=== PATIENT | female | born 1940 | race Caucasian/White ===

== ENCOUNTER 2023-12-28 10:14 | Emergency (ER) | payer OTHER, SELFPAY ==
[2023-12-28 10:33] VITALS: BP 166/78
[2023-12-28 11:51] VITALS: BMI 28.4
--- NOTE | 2023-12-28 12:00 | ED.GENMED ---
History of Present Illness
General
Chief Complaint: Headache
Time Seen by Provider: 12/28/23 11:30
Travel History
Have you had any contact with someone who has COVID-19?: No
Do you have any symptoms of coronavirus? Fever > 100 degrees, chills, cough, shortness of breath, sore throat, loss of taste or smell, muscle aches, or headache?: No
History of Present Illness
History of Present Illness:
83-year-old female with history of colorectal cancer status post colostomy, breast cancer status post mastectomy, and hypothyroidism presents to the emergency department for evaluation of gradually worsening right occipital/mastoid area headache
ongoing for the past 4 to 5 days. Pain was not abrupt in onset, has not improved despite [id number] Tylenol use. Denies any vision changes, photophobia, nausea, vomiting, or extremity paresthesias. No change in pain with head or neck
movement.
Review of Systems
Review of Systems
Allergies reviewed?: Yes
All Other Systems: ROS reviewed and negative except as documented in HPI and ROS
Phy Exam
Physical Exam
Physical Exam:
GEN: Well appearing, NAD, WDWN
HEENT: Oral mucosa moist, no scleral icterus, no nasal congestion. No reproducible tenderness to the right temporal or occipital space, no erythema or skin changes
Cardiac: Regular rate
Lung: No respiratory distress, no tachypnea
MSK: No gross deformity or injuries
Skin: Good color, no pallor or jaundice, no rashes
Neuro: AO x3; CN II-XII grossly intact. BUE strength 5/5 in all kent, sensation intact and symmetric. BLE strength 5/5 in all kent, sensation intact and symmetric
Psych: Calm, cooperative
Course
Orders/Labs/Results
Orders:
Orders
12/28/23 11:59
IV Insert/Care/Rem.- Treatment PRN
Gabapentin [Neurontin] 100 mg PO NOW STA
Metoclopramide [Reglan] 10 mg IV NOW STA
Morphine Sulfate 4 mg IV NOW STA
12/28/23 12:24
Gabapentin [Neurontin] 300 mg PO NOW STA
12/28/23 13:57
CT Head W/o Iv Contrast Urgent
Comment:
Reason For Exam: new R occipital headache
12/28/23 15:11
Dexamethasone Sod Phosphate [Decadron] 6 mg IV NOW STA
Morphine Sulfate 2 mg IV NOW STA
Vital Signs
Initial and Last Documented VS:
Initial Vital Signs
Temp Pulse Resp BP Pulse Ox
98.9 F 75 18 166/78 96
12/28/23 10:33 12/28/23 10:33 12/28/23 10:33 12/28/23 10:33 12/28/23 10:33
Last Documented Vital Signs
Temp Pulse Resp BP Pulse Ox
98.9 F 69 20 158/69 99
12/28/23 10:33 12/28/23 17:04 12/28/23 17:04 12/28/23 17:04 12/28/23 17:04
MDM/Problems Addressed
MDM/Problems Addressed:
Patient is neurologically intact thus neuroimaging was not immediately ordered. Initial antimigraine medications were ineffective, I subsequently performed a right lesser occipital nerve block with 2 cc of 1% lidocaine with no significant
improvement. Patient was quite insistent that we obtain imaging to rule out intracranial process which I ultimately obliged, CT of the head was unremarkable. Clinical pattern is suspicious for occipital neuralgia, given that she is intolerant to
NSAIDs we will try course of steroids. She is already on nerve pain medications
*Critical Care Note
Total Time (30-74mins, 75-104mins- exclusive of procedures): Not Applicable
ED Attending Note
-
Portions of this chart may have been created with voice recognition software.� Occasional wrong word or��sound alike� substitutions may have occurred due to the inherent limitations of voice recognition software.
Discharge Plan
Departure
Patient Disposition: Home (Routine Discharge)
Date of Disposition: 12/28/23
Time of Disposition: 16:12
Patient with high blood pressure during this ER visit?: No
Discharge Problem:
Occipital neuralgia of right side
Instructions: Trigeminal neuralgia
Prescriptions:
New
methylprednisolone [Medrol (Sudheer)] 4 mg tablets,dose pack
See Rx Instructions .ROUTE .COMPLEX Qty: 21 0RF
Rx Instructions:
orally per package directions
No Action
anastrozole 1 MG tablet
1 mg PO DAILY
levothyroxine 100 MCG tablet
100 mcg PO DAILY
cholecalciferol (vitamin D3) 1,000 UNITS tablet
1,000 units PO QPM
multivitamin with folic acid [Tab-A-Kristian] 1 TABLET tablet
0.5 tab PO DAILY
Ca carb-D3-mag [id number] [Caltrate-D3 Plus Minerals] 1 EACH tablet
0.5 tab PO BID
acetaminophen 500 MG tablet
1,000 mg PO QID PRN (Reason: pain)
mupirocin 1 APPLIC ointment
1 applic intranasal BID Qty: 1 0RF
Patient Comments:
last dose pm 08/29, bids since monday 08/27
Rx Instructions:
Has from prior R TKA in 10/2019.
calcium polycarbophil [Fiber-Tabs] 625 MG tablet
625 mg PO BID 0RF
docusate sodium 100 MG capsule
100 mg PO BID 0RF
hydromorphone 2 MG tablet
2 mg PO Q4HPRN PRN (Reason: moderate-severe pain) Qty: 30 0RF
Rx Instructions:
1 tab moderate pain or 2 if pain severe
dx tka
ongoing therapy
vitamin A-vitamin C-vit E-min 1 TAB tablet
0.5 tab PO QPM Qty: 0 0RF
Rx Instructions:
resume 7 days post-op
red yeast rice 600 MG tablet
600 mg PO DAILY Qty: 0 0RF
Rx Instructions:
resume 7 days post-op
Glucosamine & Chondroitin Cap
1 cap PO DAILY Qty: 0 0RF
Rx Instructions:
resume 7 days post-op
gabapentin 100 MG capsule
200 mg PO BID Qty: 120 1RF
aspirin [Aspir-Low] 81 MG tablet,delayed release (DR/EC)
81 mg PO BID Qty: 1 0RF
Rx Instructions:
w food
Referrals:
Beatriz Murdock MD [Family Provider] -
Interventions
Interventions:
*Risk Screen - Suicide Last Done: 12/28/23 12:13
*General Assessment Last Done: 12/28/23 12:12
*Neglect/Abuse Screening Last Done: 12/28/23 12:13
*ED COVID-19 Vaccine History Last Done: 12/28/23 10:33
ED- Neurological Assessment Last Done: 12/28/23 12:14
Discharge Date and Time
Print Language: BURUNDIAN
[2023-12-28] MEDS: REGLAN 10 MG IV (12:12)
[2023-12-28] MEDS: MORPHINE SULFATE 4 MG IV (12:21)
[2023-12-28] MEDS: NEURONTIN 300 MG PO (12:27)
[2023-12-28 15:06] VITALS: BP 170/75
[2023-12-28] MEDS: DECADRON 6 MG IV (16:01)
[2023-12-28] MEDS: MORPHINE SULFATE 2 MG IV (16:01)
[2023-12-28 16:20] VITALS: BP 158/69
[2023-12-28 17:04] VITALS: BP 158/69
== END 2023-12-28 16:25 | disposition home or self-care (01) ==
LOC: EMR 10:14
PROVIDERS: EMERGENCY PHYSICIAN Emergency Medicine; FAMILY PHYSICIAN Internal Medicine Geriatric Medicine
DX: M54.81 Occipital neuralgia (principal); E03.9 Hypothyroidism, unspecified; Z85.048 Personal history of other malignant neoplasm of rectum, rectosigmoid junction, and anus; Z85.3 Personal history of malignant neoplasm of breast; Z93.3 Colostomy status
CPT/HCPCS: 99284; 96374; 96375; 96376; 70450

== ENCOUNTER 2023-12-31 23:52 | Inpatient (IN) | payer OTHER, SELFPAY ==
[2023-12-31] VITALS (8 sets, daily range): BP systolic 93–174; BP diastolic 49–82; BMI 27.8
[2023-12-31 17:57] LABS: % Basophils 0.3 % (0-2); % Eosinophils 0.8 % (0-6); % Immature Granulocytes 0.7 % (0-0.5); % Lymphocytes 1.8 % (20.5-51.1); % Monocytes 4.3 % (1.7-9.3); % Neutrophils 92.1 % (42.2-75.2); Absolute Basophils 0.1 10^3/uL (0-0.2); Absolute Eosinophils 0.2 10^3/uL (0-0.7); Absolute Immature Granulocytes 0.2 10^3/uL (0-0.05); Absolute Lymphocytes 0.5 10^3/uL (1.2-3.4); Absolute Monocytes 1.2 10^3/uL (0.1-0.6); Absolute Neutrophils 25.5 10^3/uL (1.4-6.5); Hematocrit 39.8 % (37.0-47.0); Hemoglobin 13.8 g/dL (12.0-16.0); Mean Corp Hgb Conc. 34.7 g/dL (33.0-37.0); Mean Corpuscular Hgb 30.6 pg (27.0-31.0); Mean Corpuscular Volume 88.2 fL (81.0-99.0); Mean Platelet Volume 9.8 fL (7.4-10.4); Nucleated Red Blood Cells % 0 %; Platelet Count 219 10^3/uL (130-400); Red Blood Cell Count 4.51 10^6/uL (4.20-5.40); White Blood Cell Count 27.6 10^3/uL (4.8-10.8)
[2023-12-31 18:18] LABS: ALT (SGPT) 41 U/L (0-35); AST (SGOT) 32 U/L (14-36); Albumin 3.6 g/dl (3.5-5.0); Alkaline Phosphatase 126 U/L (38-126); Calcium 9.2 mg/dl (8.4-10.2); Carbon Dioxide 27 mmol/L (22-30); Chloride 93 mmol/L (98-107); Glucose 174 mg/dl (70-99); Potassium 4.2 mmol/L (3.5-5.1); Sodium 130 mmol/L (135-145); Total Protein 6.4 g/dl (6.3-8.2); eGFR > 60.00
[2023-12-31 18:52] LABS: Blood Urea Nitrogen 27 mg/dl (7-17)
--- NOTE | 2023-12-31 21:14 | ED.GENMED ---
History of Present Illness
General
Chief Complaint: Headache
Source: patient and family
Time Seen by Provider: 12/31/23 20:51
Travel History
Have you had any contact with someone who has COVID-19?: No
Do you have any symptoms of coronavirus? Fever > 100 degrees, chills, cough, shortness of breath, sore throat, loss of taste or smell, muscle aches, or headache?: No
History of Present Illness
History of Present Illness:
83-year-old female presents to the emergency room complaining of pain located in her posterior right head, temporal region radiating to her jaw. Patient's also noted to have some drooping of the right eye as well as erythema around the right eye.
Patient began having a this pain approximately 9 days ago. It began as a more mild pain and has got progressively worse. No improvement with Tylenol. Patient was seen here in the emergency room on December 27. At that time she had imaging in the
form of CT scan which showed no acute abnormalities. Patient was treated with gabapentin and steroids for presumed occipital neuralgia. The eye symptoms were not prominent at that time.
Phy Exam
Physical Exam
Physical Exam:
General: Awake, Alert, Oriented X3. Patient peers uncomfortable
Vitals: Febrile
Head: Atraumatic
Eyes: Pupils equal, EOMI, mild scleral injection, anterior chamber appears normal. There is erythema surrounding the right eye and evaluate the eyelid. Mild tenderness to palpation. No pain with extraocular movement
Throat: Airway intact, no exudates
Neck: Trachea midline, no nuchal rigidity
Lungs: Clear and equal b/l
Heart: Regular rate, 2/6 murmurs
Abd: Soft, Nontender, No pulsatile mass
Neuro: Cranial nerves intact, muscle strength equal bilaterally, cerebellar exam normal
Skin: Warm, dry, no rash
Extremities: pulses equal b/l, no edema
Course
Orders/Labs/Results
Orders:
Orders
12/31/23 17:40
Electrocardiogram (*1) Urgent
Reason for Study: Hypertension, Benign
12/31/23 17:48
Complete Blood Count/With Diff Urgent
Comprehensive Metabolic Panel Urgent
12/31/23 21:06
Influenza A+B Rapid Molecular Urgent
ART Source: Nasal Swab
Specimen Description:
12/31/23 21:07
COVID-19 Antigen Urgent
Source: Nasal Swab
12/31/23 21:12
HYDROmorphone [Dilaudid] 0.5 mg IV NOW STA
12/31/23 21:15
C-Reactive Protein Urgent
Lactic Acid Q4H
Comment: ON ICE, CANCEL 2ND ORDER IF FIRST LACTIC ACID LEVEL <2
Sed Rate [Erythrocyte Sed Rate] Urgent
Blood Culture Q30M
ART Source: Blood/Venous
Specimen Description:
Comment: FROM 2 SEPARATE SITES
12/31/23 21:19
Acetaminophen [Tylenol] 650 mg .ROUTE .STK-MED ONE
12/31/23 21:23
Acetaminophen [Tylenol] 650 mg PO NOW STA
12/31/23 21:27
0.9% Sodium Chloride 1000 ml [Nss] 1,000 ml IV BOLUS
12/31/23 21:42
Fluorescein Sodium [Ful-Nona] 1 mg .ROUTE .STK-MED ONE
Tetracaine HCl [Tetracaine 0.5% Ophthalmic Solution] 1 drop .ROUTE .STK-MED ONE
12/31/23 22:35
0.9% Sodium Chloride 1000 ml [Nss] 1,000 ml IV BOLUS
12/31/23 22:37
Piperacillin/Tazo 4.5 Gram [Zosyn] 4.5 gram in 100 ml IV NOW
12/31/23 22:50
Urinalysis Reflex To Culture Urgent
Date Specimen was Collected: 12/31/23
Time Specimen was Collected: 22:48
Comment: straight cath
12/31/23 23:04
Vancomycin [Vancocin] 1,750 mg 0.9% Sodium Chloride 500 ml [Nss] 500 ml IV NOW
12/31/23 23:17
Blood Culture Q30M
ART Source: Blood/Venous
Specimen Description:
Comment: FROM 2 SEPARATE SITES
12/31/23 23:28
CT Orbits With Iv Contrast Urgent
Comment:
Reason For Exam: right eye erythema, ptosis, + fevers
01/01/24 01:15
Lactic Acid Q4H
Comment: ON ICE, CANCEL 2ND ORDER IF FIRST LACTIC ACID LEVEL <2
Abnormal Lab Results
12/31/23 12/31/23
17:48 21:15
WBC 27.6 H 10^3/uL
(4.8-10.8)
Abs Immat Gran (auto) 0.2 H 10^3/uL
(0-0.05)
Absolute Neuts (auto) 25.5 H 10^3/uL
(1.4-6.5)
Absolute Lymphs (auto) 0.5 L 10^3/uL
(1.2-3.4)
Absolute Monos (auto) 1.2 H 10^3/uL
(0.1-0.6)
Immature Gran % 0.7 H %
(0-0.5)
Neutrophils % 92.1 H %
(42.2-75.2)
Lymphocytes % 1.8 L %
(20.5-51.1)
ESR 50 H mm/hour
(0-20)
Sodium 130 L mmol/L
(135-145)
Chloride 93 L mmol/L
(98-107)
BUN 27 H mg/dl
(7-17)
Glucose 174 H mg/dl
(70-99)
ALT 41 H U/L
(0-35)
C-Reactive Protein > 270.00 H mg/L
(0.0-10.00)
12/31/23 17:48
12/31/23 17:48
Vital Signs
Initial and Last Documented VS:
Initial Vital Signs
Temp Pulse Resp BP Pulse Ox
98.7 F 94 18 174/82 93
12/31/23 17:36 12/31/23 17:36 12/31/23 17:36 12/31/23 17:36 12/31/23 17:36
Last Documented Vital Signs
Temp Pulse Resp BP Pulse Ox
99.0 F 80 20 97/53 95
12/31/23 23:15 12/31/23 23:00 12/31/23 23:00 12/31/23 23:00 12/31/23 23:00
MDM/Problems Addressed
Differential Diagnosis Includes:
periorbital cellulitis, orbital cellulitis, giant cell arteritis, zoster with ophthalmic involvement
MDM/Problems Addressed:
Patient presents with fever this persistent headache. She now has ptosis and some mild periorbital erythema. Concern for infectious process. There is no fluorescein uptake on ophthalmologic exam with fluorescein. Also concern for giant cell
arteritis. Particularly given the presentation of pain radiating to her jaw, scalp tenderness and now eye involvement. Discussed this possibly rheumatology. Recommended 6 mg of Decadron. Also cover with broad-spectrum antibiotics for infectious
cause.
*Pulse Oximetry
Patient hypoxic: no
*International Logistics Manager Interpretation
Rate: normal
Interpretation: normal
Rhythm: sinus
*Critical Care Note
Total Time (30-74mins, 75-104mins- exclusive of procedures): Not Applicable
Data Reviewed
Review of Other/Old Records Reveals: Radiology Studies (from 12/27)
ED Attending Note
-
Portions of this chart may have been created with voice recognition software.� Occasional wrong word or��sound alike� substitutions may have occurred due to the inherent limitations of voice recognition software.
Discharge Plan
Departure
Patient Disposition: Admit
Date of Disposition: 12/31/23
Time of Disposition: 22:38
Presentation/result/management discussed w/ accepting MD/DO: Hospitalist
Condition: Fair
Discharge Problem:
Fever, Ptosis, Headache
Prescriptions:
No Action
levothyroxine 100 MCG tablet
100 mcg PO DAILY
cholecalciferol (vitamin D3) 1,000 UNITS tablet
1,000 units PO QPM
multivitamin with folic acid [Tab-A-Kristian] 1 TABLET tablet
0.5 tab PO DAILY
Caltrate-D3 Plus Minerals 1 EACH tablet
1 tab PO DAILY
red yeast rice 600 MG tablet
600 mg PO DAILY Qty: 0 0RF
gabapentin 300 mg capsule
300 mg PO BID
Glucosamine Chondroitin 550-30-1 mg Capsule
1 cap PO DAILY
methylprednisolone [Medrol (Sudheer)] 4 mg tablets,dose pack
4 mg PO .TAPER
Patient Comments:
12/31/2023: Pt is on day 3 of the taper directions, pt took am and lunch doses (total 8mg today)
Referrals:
Beatriz Murdock MD [Family Provider] -
Interventions
Interventions:
*Risk Screen - Suicide Last Done: 12/31/23 17:36
*General Assessment Last Done: 12/31/23 17:36
*Neglect/Abuse Screening Last Done: 12/31/23 17:36
ED- Neurological Assessment Last Done: 12/31/23 23:10
Discharge Date and Time
Print Language: SWEDISH
[2023-12-31] MEDS: TYLENOL 650 MG PO (21:24)
[2023-12-31] MEDS: NSS 1000 IV ×2 (21:28→23:27)
[2023-12-31] MEDS: DILAUDID 0.5 MG IV (21:29)
[2023-12-31 21:35] LABS: Erythrocyte Sed Rate 50 mm/hour (0-20)
[2023-12-31 21:37] LABS: Lactic Acid 1.6 mmol/L (0.7-2.0)
[2023-12-31 21:42] LABS: COVID-19 Antigen Negative (Negative)
[2023-12-31 21:56] LABS: C-Reactive Protein > 270.00 mg/L (0.0-10.00)
--- NOTE | 2023-12-31 22:49 | EDRN ---
straight cath performed to obtain urine specimen. straight cath urine output-800mL. pt states she had no urge to urinate.
--- NOTE | 2023-12-31 23:06 | HPS.HSE ---
Family Physician
-
Family Physician: Beatriz Murdock
Chief Complaint
-
headache and right eye drooping
History of Present Illness
Ms. Kari Guzman is a 83 yo woman with hx rectal colon CA s/p partial colectomy, CKD 3, peripheral neuropathy, ER visit 12/27 for right occipital/mastoid area headache with neg CT discharged on steroids represents to the ER with persistent headache and
right eye drooping.
Patient's headache started about a week and a half ago. At first she said it was minor but then progressed. Mainly along right posterior side. She also complained of right jaw pain. Patient states she didn't notice anything abnormal with her eye
until son pointed it out today. Her right eye has eye lid erythema and ptosis, nearly closed shut. Patient denies eye pain or vision changes. She can move her eye without any pain.
She did not notice that she was having fevers at home.
No chest pain or shortness of breath. + decreased appetite today and vomiting. No diarrhea. No rash. No LE swelling.
Patient has been taking her Medrol pack prescribed last ER visit but states the pain has gotten worse.
Medical History
Past Medical History
Past Medical History: Reports Other ( hx rectal colon CA s/p partial colectomy, CKD 3, peripheral neuropathy, hypothyroidism)
Past Surgical History: Reports None
Social History
Tobacco: Non-smoker
Alcohol: None
Family History
Family History: Not pertinent
Allergies / Home Medications
Allergies reflects when Allergies were last updated in [facility].
Home Medications with original date entered in [facility]
Allergy/Medication List:
Allergies
Allergy/AdvReac Type Severity Reaction Status Date / Time
Cephalosporins Allergy Shortness Verified 12/31/23 17:35
of Breath
NSAIDS (Non-Steroidal Allergy RECTAL Verified 12/31/23 17:35
Anti-Inflamma BLEEDING
Home Medications
calcium carb 300 mg-D3 20 mcg-mag ox 25 mg-copywriting intern 0.5 up-dpnz-diny tablet (Caltrate-D3 Plus Minerals) 1 tab PO DAILY 10/20/19
cholecalciferol (vitamin D3) 25 mcg (1,000 unit) tablet 1,000 units PO QPM 10/20/19
levothyroxine 100 mcg tablet 100 mcg PO DAILY 10/20/19
multivitamin with folic acid 400 mcg tablet (Tab-A-Kristian) 0.5 tab PO DAILY 10/20/19
red yeast rice 600 mg tablet 600 mg PO DAILY ##0 08/31/20
gabapentin 300 mg capsule 300 mg PO BID 12/31/23
glucosamine sulf dipot chlr,msm,chond 550 mg-C 30 mg-maría 1 mg capsule (Glucosamine Chondroitin) 1 cap PO DAILY 12/31/23
methylprednisolone 4 mg tablets in a dose pack (Medrol (Sudheer)) 4 mg PO .TAPER 12/31/23
Review of Systems
-
History Source: Patient
A 12 point ROS was completed and negative except as noted: Yes
Physical Exam
Vital Signs
Vital Signs
Temp Pulse Resp BP Pulse Ox
100.3 F 93 20 101/49 94
12/31/23 22:30 12/31/23 22:45 12/31/23 22:45 12/31/23 22:30 12/31/23 22:45
Physical Exam
General: No Apparent Distress
HEENT: Other (pupils small, equal and reactive. right eye ptosis and eyelid erythema)
Respiratory: Clear; No Wheezes
Cardiac: S1/S2 and Regular Rhythm
GI: Soft and Non Tender
Musculoskeletal: No Edema
Skin: Warm and Dry; No Rash
Neuro: AO x 3
Psych: Calm
Laboratory Results
-
12/31/23 17:48
12/31/23 17:48
Laboratory Results
Lactic Acid 1.6 mmol/L (0.7-2.0) 12/31/23 21:15
Total Bilirubin 1.0 mg/dl (0.2-1.3) 12/31/23 17:48
AST 32 U/L (14-36) 12/31/23 17:48
ALT 41 U/L (0-35) H 12/31/23 17:48
Alkaline Phosphatase 126 U/L (38-126) 12/31/23 17:48
Data Reviewed
-
Diagnostic Radiology: Report Reviewed by me
Lab Data: Labs Reviewed by me
Impression/Plan
-
Ms. Kari Guzman is a 83 yo woman with hx rectal colon CA s/p partial colectomy, CKD 3, peripheral neuropathy, ER visit 12/27 for right occipital/mastoid area headache with neg CT discharged on steroids represents to the ER with persistent headache and
right eye drooping.
Triage VS: T 98.7 up to 102.8, P 94, RR 18, BP 174/82, SpO2 93%
LABS: WBC 27.6, Hg 13.8, PLT 219, ESR 50, Na 130, K+ 4.2, Cl 93, BUN 27, Cr 0.9, Glucose 174, Lactate 1.6, CRP > 270
covid negative
flu negative
MAR: IVF, dilaudid, Vanc/Zosyn
Right Eye Erythema
Right Eye Ptosis
Occipital Headache
Fevers
Presentation unclear. Started with headache now with fevers, right eye erythema and ptosis. Concern for preseptal versus orbital cellulitis versus cavernous sinus thrombosis? Concern also raised for GCA given jaw pain, fever and headache
-obtaining CT orbits with contrast now as will also see cavernous sinus.
-will continue broad spectrum abx vanc/zosyn
-ER discussed case with rheum and concern raised for GCA but with location of headache, right eye erythema and ptosis this diagnosis seems more unlikely. Will await above results before starting higher dose steroids (initial recs were for decadron
6mg daily)
-ID Consult
-may need optho consult versus rheum/vasc surgery or neuro consult depending on above
DVT PPx SCD
FULL CODE
[2023-12-31 23:17] LABS: Urine Albumin 2+ (Neg - Trace); Urine Bilirubin Negative (Negative); Urine Character Clear (Clear); Urine Color Yellow; Urine Glucose Negative (Negative); Urine Ketone 1+ (Negative); Urine Leukocyte Negative (Negative); Urine Nitrite Negative (Negative); Urine Occult Blood Negative (Negative); Urine Urobilinogen Negative (Neg - 1+)
[2023-12-31] MEDS: ZOSYN 100 IV (23:27)
[2024-01-01] VITALS (8 sets, daily range): BP systolic 96–141; BP diastolic 45–57; BMI 29.2; BMI 29.7
[2024-01-01] MEDS: VANCOCIN 535 MG IV (00:31)
[2024-01-01 00:35] LABS: Urine Amorphous Seen; Urine Red Blood Cell 0-2 /HPF (0-2); Urine White Cell 0-2 /HPF (0-5)
[2024-01-01 00:36] LABS: Urine Bacteria Many (Negative)
--- NOTE | 2024-01-01 01:00 | W.PN.UPDATE ---
Update Note
Progress Note Update
CT orbits shows mild right periorbital preseptal soft tissue swelling, no post septal emphysema or abscess. complete opacification left sphenoid sinus, correlate clinically for sinusitis.
*no evidence of orbital cellulitis
Given LAW, fevers, jaw pain and scalp tenderness - will start Decadron per rheumatology recs and consult vascular surgery for biopsy.
will continue abx for preseptal cellulitis.
[2024-01-01] MEDS: DECADRON 6 MG PO (01:14)
--- NOTE | 2024-01-01 02:00 | PTCARENOTE ---
@0140; Received pt from ED ,via stretcher,tele and nasal canula 2liters.Pt assisted to standing scale and to bed.Gait unsteady and needed assist of 2 to bed. Pt's right eye lid is edematous and covers over right eye.
--- NOTE | 2024-01-01 02:45 | PTCARENOTE ---
@0240 ;Dr Escamilla into see pt and CT of head ordered.
--- NOTE | 2024-01-01 02:47 | W.PN.UPDATE ---
Update Note
Progress Note Update
patient re-examined and she now has development impaired adduction right eye; concern for CN palsy and cavernous vein thrombosis
although patient had a contrast load, she has normal renal function and benefit of detecting this outweighs risk. she is receiving IVF
CT Venogram ordered - discussed with inpatient CT.
--- NOTE | 2024-01-01 04:00 | PTCARENOTE ---
@0330;Pt had moderate amount of maroon rectal drainage x1. Pt stated,'I get that every day since I had radiation years ago.I wear a pad in my under deluca every day.Pt also has LLQ colostomy that she cares for herself.
[2024-01-01 04:13] LABS: Osmolality Urine 801 mOsm/kg (300-900); Urine Sodium 26 mmol/L (30-90)
[2024-01-01] MEDS: NSS 1000 IV (04:25)
--- NOTE | 2024-01-01 05:48 | W.PN.UPDATE ---
Update Note
Progress Note Update
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 Discussed case with Dr. Natarajan, recommends transfer to tertiary facility. Discussed case with [facility] who will accept patient. Accepting physician is Dr. Cassi Barrios.
abx broadened to vanc/meropenem
holding off on anticoagulation - confirmed with [facility] team to hold off.
patient and daughter updated
--- NOTE | 2024-01-01 06:30 | PTCARENOTE ---
@6223 ;Telephone report given to GRACIA Valdez in IMU and pt transported to IMU @0615 via stretcher.
[2024-01-01 06:34] LABS: % Basophils 0.5 % (0-2); % Eosinophils 0.7 % (0-6); % Immature Granulocytes 1.8 % (0-0.5); % Lymphocytes 2.3 % (20.5-51.1); % Monocytes 4.7 % (1.7-9.3); Absolute Basophils 0.2 10^3/uL (0-0.2); Absolute Eosinophils 0.2 10^3/uL (0-0.7); Absolute Immature Granulocytes 0.6 10^3/uL (0-0.05); Absolute Lymphocytes 0.7 10^3/uL (1.2-3.4); Absolute Monocytes 1.5 10^3/uL (0.1-0.6); Absolute Neutrophils 28.2 10^3/uL (1.4-6.5); Hematocrit 33.9 % (37.0-47.0); Hemoglobin 11.6 g/dL (12.0-16.0); Mean Corp Hgb Conc. 34.2 g/dL (33.0-37.0); Mean Corpuscular Hgb 30.3 pg (27.0-31.0); Mean Corpuscular Volume 88.5 fL (81.0-99.0); Mean Platelet Volume 10.6 fL (7.4-10.4); Nucleated Red Blood Cells % 0 %; Platelet Count 176 10^3/uL (130-400); Red Blood Cell Count 3.83 10^6/uL (4.20-5.40); Red Cell Dist. Width 14.4 % (11.5-14.5); White Blood Cell Count 31.3 10^3/uL (4.8-10.8)
--- NOTE | 2024-01-01 06:36 | PTCARENOTE ---
Received pt from [facility] in her bed. Moved to the IMU bed without difficulty. CHG wipe bath given and placed on monitor. Pt is in NSR and she has a R AC IV NSS at 80cc/hr. Skin is warm and dry and she has no complaints other than dry mouth and
Photophobia. Call bel in reach of pt.
[2024-01-01 06:54] LABS: ALT (SGPT) 34 U/L (0-35); AST (SGOT) 25 U/L (14-36); Albumin 2.7 g/dl (3.5-5.0); Alkaline Phosphatase 114 U/L (38-126); Blood Urea Nitrogen 26 mg/dl (7-17); Calcium 7.8 mg/dl (8.4-10.2); Carbon Dioxide 22 mmol/L (22-30); Chloride 101 mmol/L (98-107); Estimated Creatinine Clearance 43 ml/min; Glucose 155 mg/dl (70-99); Sodium 131 mmol/L (135-145); Total Bilirubin 0.6 mg/dl (0.2-1.3); Total Protein 5.1 g/dl (6.3-8.2)
[2024-01-01 07:01] LABS: Potassium 3.9 mmol/L (3.5-5.1)
[2024-01-01] MEDS: MERREM 100 MG IV (07:20)
--- NOTE | 2024-01-01 07:47 | CON.NEURO4 ---
Consultation - Neurology 4
-
CONSULTING PHYSICIAN: Augusto Bruce
REFERRING PHYSICIAN: Hospitalist
DICTATED BY: Augusot Bruce
DATE/TIME OF REQUEST: 01/01/24
DATE/TIME OF CONSULTATION: 01/01/24
Reason for Consultation: Ophthalmoplegia, concern for infection and cavernous sinus thrombosis
History of Present Illness:
The patient is an 83-year-old right-handed woman with a past with a history of rectal cancer status post colectomy, CKD, previous breast cancer in remission, peripheral neuropathy presented to hospital with headache, right eye ptosis, and right eye
swelling. She reports having had onset of right-sided temporal area headache around 10 days ago. There had not been any recent head or neck trauma or any eye trauma or outward abnormality of the eyes at that time. Headache did remain consistent
and she did have visit to the ER on 12/27 was evaluated and had negative CT of the head and was discharged on steroids for symptomatic therapy. On approximately Thursday there started to be right eye swelling and mild amount of ptosis noted by her
family, and by Thursday noted to have significant ptosis on the right eye. She has had some right-sided jaw pain. No history of any ear pain swelling or discharge, no history of any sinus infections. She denies any pain with eye movement. No
diplopia. Her vision feels at baseline in both the right and left eyes though does have chronic visual problems from history of wet and dry macular degeneration and does receive injections in the left eye for this. CT of the orbits showed
periorbital preseptal swelling. Patient did have fever here to 102, has been started on broad-spectrum antibiotics with meropenem and vancomycin.
Due to concern for potential orbital or preseptal cellulitis as well as cavernous sinus thrombosis patient has been accepted for transfer to [facility].
Past Medical History: Rectal cancer status post partial colectomy, breast cancer in remission, CKD 3, peripheral neuropathy, hypothyroidism, wet and dry macular degeneration
Surgical History: Rectal cancer status postresection and partial colectomy
Family History: Reviewed and noncontributory
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
Allergies: NSAIDs and cephalosporins
Home Medications:
Review of Symptoms:
Patient denies any chest pain, shortness of breath, GI or symptoms. Positive for headache and fever.
Physical Exam:
Patient with right eye ptosis and orbital edema, minimal erythema and minimal ptosis of the right eye, no pain on the sinuses of the forehead or maxillary sinus ear outwardly normal, no lymphadenopathy. No signs of head or neck trauma no neck
masses heart rate regular breathing unlabored abdomen soft nontender no lower extremity edema rash or joint deformity seen.
Neurologic Examination:
Mental status unremarkable patient fully awake and alert conversational no aphasia no neglect
Cranial nerve examination shows right eye ptosis and ophthalmoplegia with limited right eye abduction, abduction and elevation, mild exotropia of the right eye. Right eye vision 20/40 to near card testing and left eye 20/60 near card testing.
Pupils are 3 mm equal round reactive light bilaterally, visual kent intact confrontation bilaterally. Intact to light touch V1�V3 bilaterally. No dysarthria, smile is symmetric, tongue is midline.
Motor examination shows no pronator drift no tremor or parkinsonism normal bulk and tone power 5/5 for arm flexion shoulder abduction hip flexion bilaterally.
Intact to light touch upper and lower extremities bilaterally
Absent reflexes throughout, Babinski negative no clonus
Normal finger-nose testing bilaterally
Gait exam deferred
Neuro Imaging: CT orbits with IV contrast
IMPRESSION:
Mild right periorbital preseptal soft tissue swelling likely on an inflammatory/infectious basis.
No findings to suggest orbital abscess.
Sphenoid sinus and ethmoid air cell opacification compatible with at least chronic inflammatory changes.
Impressions
1. Right eye ptosis, periorbital and mild proptosis, headache and fever. Concern for a preseptal or orbital cellulitis in addition to possible cavernous sinus thrombosis which would most likely be secondary to infection. No clear signs of sinus
or ear infection as a potential adjacent source. No history of diabetes or immune compromise.
2.
3.
4.
Recommendations:
1. Continue broad-spectrum antibiotics
2. Patient will need further brain and orbit imaging would most likely benefit from MRI of the brain and orbits with and without contrast in addition to MRA of the head
3. Patient will require ophthalmology evaluation
4. Patient would require infectious disease evaluation
5. Patient has been accepted to transfer to [facility]
6. At this time we will hold off on therapeutic anticoagulation
7. Neurologic checks
Discussed patient care with: Patient and her family, nursing, hospitalist
--- NOTE | 2024-01-01 08:23 | WOUNDNOTE ---
WOC RN note: Patient for transfer to [place]. Spoke with patient who stated she has her ostomy supplies. She uses Coloplast 2 piece convex with adhesive coupling. Nursing care assist patient with ostomy care as needed. Will sign off.
--- NOTE | 2024-01-01 08:25 | PHA.VAN.IN ---
Assessment
- Assessment
Renal Function: Appears similar to baseline
Concomitant Antimicrobials: meropenem
AUC Dosing Plan
- Dosing Variables
Dosing Weight (kg): 78
Dosing CrCl (ml/min): 43
Vd coefficient (L/kg): 0.7
- Empiric Dosing
Initial / Loading Dose: 1750mg - 12/31 00:31
Maintenance Regimen: Vanc 1000mg Q24H starting 01/01 600
Estimated AUC (mcg*h/mL): 466
Estimated Peak (mcg*h/mL): 29.6
Estimated Trough (mcg/ml): 17.3
Estimated Half Life (H): 11.8
- Monitoring
No levels ordered at this time: consider levels in next few days
Pharmacokinetics Vancomycin I
- -
Patient Age: 83
Patient Sex: Female
Vancomycin Day #: 1
Indication: Eye Or Ent Infection
Requesting Provider: Dr. Escamilla
Pertinent Antimicrobial Allergies:
cephalosporins - shortness of breath
Height / Weight:
Height 5 ft 4 in
Actual Weight 78.3 kg
Pertinent Past Medical History: CKD
- Vital Signs / Lab Results
Temp Pulse Resp BP Pulse Ox
99.0 F 64 17 141/57 97
01/01/24 06:28 01/01/24 07:30 01/01/24 07:30 01/01/24 06:52 01/01/24 07:30
Lab Results - Hematology
12/31/23 01/01/24
17:48 06:02
WBC 27.6 H 31.3 H
Lab Results - Chemistry
12/31/23 01/01/24
17:48 06:02
BUN 27 H 26 H
Creatinine 0.9 1.0
Estimated Creat Clear 43
Albumin 3.6 2.7 L
12/31/23 01/01/24
21:15 01:15
Lactic Acid 1.6 Cancelled
Lab Results - Urine
12/31/23
22:50
Urine Nitrite (Reflex) Negative
Leukocyte Esterase Rfl Negative
Urine WBC (Reflex) 0-2
Ur Squamous Epith Cells 6-10
Urine Bacteria (Reflex) Many A
Microbiology Results
12/31/23 21:06 Influenza Types A & B (JD) - Final
Nasal Swab Negative for Influenza A & B, NAAT
Negative results must be combined with clinical observations
and patient history.
Nucleic Acid Amplification test (NAAT)performed on the
[employer] platform.
[2024-01-01] MEDS: TYLENOL 1000 MG PO (08:55)
[2024-01-01] MEDS: NEURONTIN 300 MG PO (08:55)
--- NOTE | 2024-01-01 09:05 | CM ---
Patient from [facility] with Dx b/l cavernous venous thrombosis. Accepted by [facility] for transfer today.
Spoke with patient's daughter Farida who was at bedside with patient;
the patient resides alone in an [facility] apartment.
She has been independent in ADLs and ambulation using her SPC.
DME - SPC, raised toilet seat, no longer has borrowed RW
Prior [facility]
No prior SNF
PCP - Beatriz Murdock
Pharmacy - [facility]
Patient conversant with her daughter. They are aware of transfer to [facility] at noon today.
Plan transfer to [facility] today by ambulance.
--- NOTE | 2024-01-01 09:08 | W.PN.HOSP.TC ---
Today's Communication/Plan
-
Transfer to [place] today
Assessment / Plan
Assessment / Plan
Physical Exam
General: No Apparent Distress
HEENT: Normocephalic
Respiratory: Clear to Auscultation Bilaterally
Cardiac: S1/S2 and Regular Rhythm
GI: Soft and Non Tender. Positive bowel sounds.
Musculoskeletal: No Edema
Skin: Warm and Dry
Neuro: AAO x 3. Right Eye: ptosis and orbital edema, limited right eye adduction, abduction and elevation, right eye vision grossly intact (but see neurology note for additional details). Pupils are 3 mm equal round reactive light bilaterally.
Intact to light touch V1�V3 bilaterally. No dysarthria. Strength and sensation grossly intact bilaterally in the upper and lower extremities.
Psych: Calm

Assessment/Plan
Ms. Kari Guzman is a 83 yo woman with hx rectal colon CA s/p partial colectomy, CKD 3, peripheral neuropathy, ER visit 12/27 for right occipital/mastoid area headache with neg CT discharged on steroids represents to the ER with persistent headache and
right eye drooping.
Triage VS: T 98.7 up to 102.8, P 94, RR 18, BP 174/82, SpO2 93%
LABS: WBC 27.6, Hg 13.8, PLT 219, ESR 50, Na 130, K+ 4.2, Cl 93, BUN 27, Cr 0.9, Glucose 174, Lactate 1.6, CRP > 270
covid negative
flu negative
MAR: IVF, dilaudid, Vanc/Zosyn
83 yo woman with recent ER visit for headache right occipital discharged on steroids presents with continued headache and new finding right eyelid erythema and ptosis. She also presented febrile to 102.8. ER had discussed case with rheum and there
was concern for GCA. Patient denied eye pain or pain on eye movement. Given fever and new periorbital swelling CT with contrast orbits obtained: No e/o orbital cellulitis; superior ophthalmic veins prominent and sphenoid sinusitis. A couple of
hours later it was noted that patient's right eye noticeably more swollen with impaired adduction. Concern for cavernous venous thrombosis with these changes. sent for CT Venogram which confirms --> discussed with neuro. She is accepted at
[facility]. Forms signed.
Right Eye Erythema
Right Eye Ptosis periorbital and mild proptosis, headache and fever
Occipital Headache
Fevers
Presentation unclear. Started with headache now with fevers, right eye erythema and ptosis. Concern for preseptal versus orbital cellulitis versus cavernous sinus thrombosis? Concern also raised for GCA given jaw pain, fever and headache
-Needs MRI of the brain and orbits with and without contrast in addition to MRA of the head
-will continue broad spectrum abx vanc/zosyn
-ER discussed case with rheum and concern raised for GCA but with location of headache, Decadron was given, right eye erythema and ptosis this diagnosis seems more unlikely.
-ID Consult
-Will need ophthalmology consult versus rheum/vasc surgery or neuro consult depending on above
-Will need infectious disease consult
-Hold off on therapeutic anticoagulation at this time
DVT PPx: SCD
FULL CODE
Impaired right eye movements, and signs of infection is a high risk encounter.
Anticipated Discharge: Today
Subjective/Interval History
-
Date of Service: January 01, 2024
Patient was seen and examined. She denied any new significant complaints this morning, except she cannot move right eye to the left.
Objective Data
-
Labs:
Laboratory Results
01/01/24
06:02
WBC 31.3 H
Hgb 11.6 L
Hct 33.9 L
Plt Count 176
Sodium 131 L
Potassium 3.9
Chloride 101
Carbon Dioxide 22
BUN 26 H
Creatinine 1.0
Glucose 155 H
Calcium 7.8 L
Total Bilirubin 0.6
AST 25
ALT 34
Alkaline Phosphatase 114
Vital Signs:
Vital Signs
Temp Pulse Resp BP Pulse Ox
99.0 F 64 17 141/57 97
01/01/24 06:28 01/01/24 07:30 01/01/24 07:30 01/01/24 06:52 01/01/24 07:30
I&O
12/31/23 01/01/24 01/02/24
06:59 06:59 06:59
Intake Total 100 / 100
Output Total 800 / 800
Balance -700 / -700
--- NOTE | 2024-01-01 10:57 | PTCARENOTE ---
Patient AAOx3. Daughters at bedside. C/o headache, tylenol given. Patient reports macular degeneration of left eye, vision impaired at baseline on that side. Patient c/o blurring of the right eye. Right eye swollen shut, decreased eye movements,
slight bulging, headache. PERRLA@2. Strength equal and strong. Sensation intact. 2L NC, sats 95%, no SOB or cough. NSR on monitor. VSS. Colostomy bag emptied with small formed stool. Patient NPO. Reports slight rectal bleeding since having radiation
many years ago for rectal cancer. Patient transferring to [facility], 12:00pm [facility]. Report given. IV fluids and tele to remain on patient while transported. Continuing to closely monitor patient.
--- NOTE | 2024-01-01 11:54 | CON.ID ---
Consultation
-
Date/Time Consultation Requested: 01/01/2024 02:24
Date/Time Consultation Performed: 01/01/2024 1110
Requesting Provider: Dr. Escamilla
Performing Provider: Dr. Aquino
Reason for Consultation: Preseptal cellulitis
Chief Complaint / Past History
History of Present Illness
Kari Guzman is an 83-year-old female being evaluated at the request of Dr. Escamilla in regards to suspected preseptal cellulitis, and the possibility of infected cavernous vein thrombosis. History is obtained from chart review, along with patient
interview.
The patient has a significant past medical history of colorectal cancer (s/p colostomy), breast cancer (s/p mastectomy) and hypothyroidism. She presented to the ER here at [facility] on 12/28/2023 secondary to gradually worsening right
occipital/mastoid area headache which had been ongoing for the prior 4 to 5 days. Pain was not abrupt, but was rather gradual on onset. She denied any vision changes, photophobia, nausea or vomiting at that time. In the ER a lesser occipital
nerve block was given without significant improvement. CT imaging of the head was unremarkable, and she was discharged with a prescription for methylprednisolone Dosepak.
She presents back to the emergency room on 12/30 secondary to ongoing posterior right headache, along with pain in the temporal region with radiation to her jaw. She was thought to have some right eye proptosis and erythema. The case was evidently
discussed with Rheumatology regarding concern for possible temporal arteritis and she was started on Decadron. At presentation she was noted to have a fever to 102.8 degrees.
Over the evening, the patient had impaired adduction of the right eye, and CT imaging showed prominent left cavernous sinus and left superior ophthalmic vein enhancement. Although findings not typical for cavernous venous thrombosis, it cannot be
completely ruled out. The patient has been accepted in transfer to [facility] for further workup.
The patient denies any prior sinus pain or pressure. She did earlier have some right jaw discomfort, but 'not tooth like pain'. No history of fevers or rigors prior to admission. Currently she notes blurry, but not double vision. She denies any
neck stiffness.
Past History
Additional Past Medical History:
Hx colon CA
CKD stage III
Peripheral neuropathy
Hypothyroidism
Hx breast CA
Additional Past Surgical History:
Partial colectomy
Mastectomy
Allergy History:
Cephalosporins Allergy (Verified 12/31/23 17:35)
Shortness of Breath
NSAIDS (Non-Steroidal Anti-Inflamma Allergy (Verified 12/31/23 17:35)
RECTAL BLEEDING
Medications Reviewed: Yes
Social History
Tobacco: Non-Smoker
Alcohol: None
Drug: None
Employment: Retired
Review of Systems
Vital Signs
Temp Pulse Resp BP Pulse Ox
98.5 F 65 17 120/49 96
01/01/24 11:40 01/01/24 10:30 01/01/24 10:30 01/01/24 10:00 01/01/24 10:30
Physical Exam
Physical Exam
Constitutional: No Acute Distress, Comfortable and Non-toxic
Eyes: Pupils Equal, Pupils Round, Sclera Anicteric, Ocular Discharge (Crusting on the medial aspect of the right eye) and Other (Right eye proptosis)
Oral: No Thrush and No Ulcers
Cardiovascular: Regular Rate and S1/S2; Negative S3/S4
Pulmonary: Clear; Negative Wheezes, Rales or Rhonchi
Gastrointestinal: Soft and Non Tender
Skin: Warm and Dry; Negative Rash or Jaundice
Neurological: Awake and Alert
Psychological: Calm
.
Lab / Diagnostic Study Results
01/01/24 06:02
01/01/24 06:02
Abs Immat Gran (auto) 0.6 10^3/uL (0-0.05) H 01/01/24 06:02
Absolute Neuts (auto) 28.2 10^3/uL (1.4-6.5) H 01/01/24 06:02
Absolute Lymphs (auto) 0.7 10^3/uL (1.2-3.4) L 01/01/24 06:02
Absolute Monos (auto) 1.5 10^3/uL (0.1-0.6) H 01/01/24 06:02
Absolute Basos (auto) 0.2 10^3/uL (0-0.2) 01/01/24 06:02
Immature Gran % 1.8 % (0-0.5) H 01/01/24 06:02
Neutrophils % 90.0 % (42.2-75.2) H 01/01/24 06:02
Lymphocytes % 2.3 % (20.5-51.1) L 01/01/24 06:02
Monocytes % 4.7 % (1.7-9.3) 01/01/24 06:02
Eosinophils % 0.7 % (0-6) 01/01/24 06:02
Basophils % 0.5 % (0-2) 01/01/24 06:02
ESR 50 mm/hour (0-20) H 12/31/23 21:15
Lactic Acid Cancelled 01/01/24 01:15
C-Reactive Protein > 270.00 mg/L (0.0-10.00) H 12/31/23 21:15
Ur Squamous Epith Cells 6-10 /LPF (Few) 12/31/23 22:50
Microbiology Results
Micro:
12/31/23 22:50 Urine Culture - Pending
Urine
12/31/23 23:17 Blood Culture - Pending
Blood/Venous
12/31/23 21:06 Influenza Types A & B (JD) - Final
Nasal Swab Negative for Influenza A & B, NAAT
Negative results must be combined with clinical observations
and patient history.
Nucleic Acid Amplification test (NAAT)performed on the
[employer] platform.
12/31/23 21:15 Blood Culture - Pending
Blood/Venous
Imaging:
01/01/2024 CT Head W/wo Iv Contrast: FINDINGS: The ventricles and sulci are normal in size and configuration for patient age. Mild central and cortical parenchymal loss is present,. There are no findings of acute intracranial hemorrhage,
extracerebral fluid collection, or mass effect. There is no evidence of acute transcortical infarction. There is no depressed calvarial fracture. Is total opacification of the sphenoid sinus and some bilateral ethmoid air cell opacification. Some
asymmetric opacification of the cavernous sinus is are noted, left slightly less than right and there is also slightly less prominent left superior ophthalmic vein enhancement as compared to the right.
IMPRESSION: Findings compatible with at least chronic sphenoid and ethmoid air cell inflammatory changes. Slightly less prominent left cavernous sinus and left superior ophthalmic vein enhancement as compared to right cavernous sinus and right
superior ophthalmic vein enhancement. Findings are not typical for cavernous sinus thrombosis and superior ophthalmic vein thrombosis although cannot be entirely excluded. Consider MR for more complete evaluation. No findings to suggest recent
intracranial infarction or hemorrhage.
Assessment / Plan
Headache
Leukocytosis (suspect component of steroid effect)
Suspected cavernous venous thrombosis
Fever
Elevated ESR
Hyponatremia
Elevated CRP
Hx colon CA
CKD stage III
Peripheral neuropathy
Hypothyroidism
Hx breast CA
Recommendations:
Continue with broad-spectrum antibiotics for now (vancomycin, meropenem). Will discuss with Clinical Pharmacist vancomycin dosing.
Blood cultures are pending. Will likely need further imaging, including MRI, to delineate the presence or absence of cavernous venous thrombosis.
Patient for transfer to [facility] when bed available.
Monitor white count and temperature curve. Monitor Vanco levels.
--- NOTE | 2024-01-02 11:55 | W.PN.UPDATE ---
Update Note
Progress Note Update
Microbiology called acknowledging patient has 2 positive sets of strep anginosus. Patient was transferred over to [facility]. Called daughter to inform of info to relay to physician at [facility].
--- NOTE | 2024-01-07 08:58 | W.DCSUMMARY ---
Discharge Summary
Discharge Data
Date of Admission: 12/31/23
Date of Discharge: 01/01/24
Total time spent discharging patient (in min): 45
-
Pending Results: Yes
Additional Pending Results:
Lab Results/Microbiology Results
Hospital Course
83 y/o female with past medical history of rectal colon cancer status post partial colectomy, chronic kidney disease stage 3, peripheral neuropathy, emergency room visit on 12/28/23 for right occipital/mastoid area headache with negative CT -
discharged on steroids - presented to the emergency room with persistent headache and right eye drooping. Patient's headache, which was progressive, was noted to have started about a week and a half prior to presentation, and her family noticed that
her right eye did not look normal - there was eye lid erythema and ptosis, and nearly closed shut. Patient was started on broad spectrum antibiotics, there was concern for preseptal versus orbital cellulitis versus cavernous sinus thrombosis? and
there also a concern for Giant Cell Arteritis (GCA) given jaw pain, fever and headache -- emergency room provider discussed case with rheumatology and concern was raised for GCA but with location of headache, right eye erythema and ptosis GCA seemed
to be more unlikely. CT imaging was ordered - CT orbits as per radiologist's report, showed: 'Mild right periorbital preseptal soft tissue swelling likely on an inflammatory/infectious basis. No findings to suggest orbital abscess. Sphenoid sinus
and ethmoid air cell opacification compatible with at least chronic inflammatory changes.' Given patient's headache, fevers, jaw pain and scalp tenderness - Decadron was started as per rheumatology recommendations and consult vascular surgery for
biopsy, and antibiotics were continued for preseptal cellulitis. Patient was re-examined and was noted to have developed impaired adduction of her right eye - there was a concern for cranial nerve palsy and cavernous vein thrombosis -- therefore CT
venogram was ordered - CT Head showed, as per radiologist's report, 'Findings compatible with at least chronic sphenoid and ethmoid air cell inflammatory changes. Slightly less prominent left cavernous sinus and left superior ophthalmic vein
enhancement as compared to right cavernous sinus and right superior ophthalmic vein enhancement. Findings are not typical for cavernous sinus thrombosis and superior ophthalmic vein thrombosis although cannot be entirely excluded. Consider MR for
more complete evaluation. No findings to suggest recent intracranial infarction or hemorrhage' - but initial results of the CT Venogram suggested evidence of bilateral cavernous venous thrombosis -- evon discussed case with Dr. Natarajan
(neurology), who recommended transferring patient to a tertiary facility; case was discussed with [facility] who accepted patient - accepting physician was Dr. Cassi Barrios. Evon confirmed with [facility] accepting team to hold off on
anticoagulation - and antibiotics were broadened to Vancomycin and Meropenem. Patient would need further brain and orbit imaging with MRI of the brain and orbits with and without contrast in addition to MRA of the head, as well as ophthalmology and
infectious disease evaluations.
After patient was transferred, Microbiology noted that patient has 2 positive sets of strep anginosus in blood cultures -- this information was given to patient's daughter by phone by on-call physician and daughter would communicate this information
with physicians at [facility].
Discharge Plan
-
Patient Disposition: Acute Care Hospital
Discharge Orders:
Discharge Patient (As Directed); Ordered 01/01/24
Ordered By: Jolene Escamilla
Discharge Date and Time
Discharge Date/Time: 01/01/24 13:13
Print Language: MEXICAN
== END 2024-01-01 13:13 | disposition short-term general hospital (02) | DRG 603 ==
LOC: IMU 23:52
PROVIDERS: Student in an Organized Health Care Education/Training Program; ADMITTING PHYSICIAN Student in an Organized Health Care Education/Training Program; ATTENDING PHYSICIAN Hospitalist; EMERGENCY PHYSICIAN Emergency Medicine; FAMILY PHYSICIAN Internal Medicine Geriatric Medicine; OTHER PHYSICIAN Internal Medicine Infectious Disease; OTHER PHYSICIAN Student in an Organized Health Care Education/Training Program
DX: L03.213 Periorbital cellulitis (principal); Z11.52 Encounter for screening for COVID-19
CPT/HCPCS: 70470; 70481; 80053; 81003; 81015; 83605; 83735; 83935; 84300; 85025; 85652; 86140; 87040; 87086; 87149; 87205; 87502; 87811; 96361; 96374; 96375; 99285; J2185; Q9967

== ENCOUNTER → 2024-04-21 06:33 | Day surgery (SDC) | payer OTHER, SELFPAY | LOC: GI 06:33 | PROVIDERS: ATTENDING PHYSICIAN Internal Medicine Gastroenterology; FAMILY PHYSICIAN Internal Medicine Geriatric Medicine | DX: Z09 Encounter for follow-up examination after completed treatment for conditions other than malignant neoplasm (principal); Z87.11 Personal history of peptic ulcer disease; K44.9 Diaphragmatic hernia without obstruction or gangrene; K29.80 Duodenitis without bleeding; K29.70 Gastritis, unspecified, without bleeding; K20.90 Esophagitis, unspecified without bleeding | CPT/HCPCS: 43235 ==